=== PATIENT | female | born 2005 | race Caucasian/White ===

== ENCOUNTER 2024-03-08 11:55 | Emergency (ER) | payer OTHER ==
[2024-03-08 12:02] VITALS: BP 117/85; PULSE 87; RESP 20; TEMP 98.2; BMI 24.1
[2024-03-08] MEDS ORDERED: IBUPROFEN 600 MG TABLET (FP) PO ONE (13:45)
[2024-03-08] MEDS ORDERED: ACETAMINOPHEN 500 MG TABLET (FP) ONE (13:45)
[2024-03-08] MEDS: IBUPROFEN 600 MG TABLET (FP) PO ONE (13:55)
[2024-03-08] MEDS: ACETAMINOPHEN 500 MG TABLET (FP) PO ONE (13:55)
== END 2024-03-08 14:31 | disposition home or self-care (01) ==
LOC: JERFT 11:55
DX: S67.190A Crushing injury of right index finger, initial encounter (principal); S67.192A Crushing injury of right middle finger, initial encounter; W23.1XXA Caught, crushed, jammed, or pinched between stationary objects, initial encounter
CPT/HCPCS: 73130-TC-RT-FY; 99283-25